=== PATIENT | female | born 1975 | race Caucasian/White ===

== ENCOUNTER 2022-11-19 11:17 | Emergency (ER) | payer BC, SELFPAY ==
--- NOTE | ~2022-11-19 | US_ITS ---
EXAMINATION: US abdomen limited DATE: 11/19/2022 16:03 INDICATION: pain TECHNIQUE: Multiple grayscale and Doppler ultrasound images of limited portions of the abdomen were o btained. COMPARISON: None available. FINDINGS: The visualized portions of the pancreas are normal. The liver is normal with increased echo genicity and echotexture. No surface nodularity. Normal hepatopetal flow in the main portal vein. Mul tiple nonmobile shadowing gallstones. No wall thickening or pericholecystic fluid. The common bile du ct measures 4 mm. There was no sonographic Pa sign. IMPRESSION: Echogenic liver, most commonly due to steatosis but also can be seen with hepatitis and fibrosis. Cho lelithiasis, without sonographic evidence of cholecystitis. Reviewed, dictated and finalized at location [facility] [employer] IMPRESSION: Echogenic liver, most commonly due to steatosis but also can be seen with hepat itis and fibrosis. Cholelithiasis, without sonographic evidence of cholecystiti s.
--- NOTE | 2022-11-19 11:19 | ECG_ITS ---
Measurements Intervals [place] Rate: 88 P: 29 [place]: 127 QRS: 23 QRSD: 106 T: 23 QT: 356 QTc: 432 Interpretive Statements SINUS RHYTHM NO PREVIOUS ECG AVAILABLE FOR COMPARISON Electronically Signed On 11-19-2022 13:25:25 [employer] by Nat Phelps M.D.
[2022-11-19 11:27] VITALS: BP 150/83; PULSE 86; RESP 18; TEMP 36.8; O2SAT 100
[2022-11-19 11:49] LABS: Alanine Aminotransferase 48 U/L (6-35); Albumin Level 4.8 g/dL (3.5-5.1); Alkaline Phosphatase 75 U/L (38-126); Anion Gap 9 mmol/L (8-16); Aspartate Amino Transferase 38 U/L (14-36); Bilirubin,Total 0.6 mg/dL (0.2-1.3); Blood Urea Nitrogen 7 mg/dL (7-17); Calcium 9.2 mg/dL (8.4-10.2); Carbon Dioxide 27 mmol/L (22-30); Chloride 104 mmol/L (98-107); Estimated CRCL calculation 106 ml/min; Estimated Glomerular Filt Rate > 60; Glucose 113 mg/dL (65-110); Potassium 4.1 mmol/L (3.4-5.0); Sodium 140 mmol/L (137-145)
[2022-11-19 11:54] LABS: Basophils Percent Auto 0.2 % (0.2-1.2); Eosinophils Percent Auto 0.3 % (0-4.4); Hematocrit 45.7 % (37.0-47.0); Immature Granulocyte Absolute 0.09 K/mm3 (0.00-0.031); Immature Granulocyte Percent A 0.7 % (0-0.5); Lymphocytes Absolute Auto 1.99 K/mm3 (0.9-3.2); Lymphocytes Percent Auto 16.2 % (18.3-44.2); Mean Corpuscular Hemoglobin 31.1 pg (26-34); Mean Corpuscular Volume 88.9 fl (80-100); Monocytes Absolute Auto 0.5 K/mm3 (0.1-0.6); Neutrophils Absolute Auto 9.7 K/mm3 (1.3-6.7); Neutrophils Percent Auto 78.6 % (45.5-73.1); Platelet Count Result 361 k/mm3 (150-375); Red Blood Count 5.14 M/mm3 (4.2-5.4); Red Cell Distribution Width 11.9 % (11.5-14.5); White Blood Count 12.3 K/mm3 (4.5-10.0)
[2022-11-19 13:44] LABS: Troponin I < 0.012 ng/mL (0.000-0.034)
--- NOTE | 2022-11-19 15:58 | ED.GENADULT ---
HPI - General Adult General Chief complaint: Dizziness Stated complaint: CP,N,V,DIZZINESS Time Seen by Provider: 11/19/22 15:29 Source: patient and RN notes reviewed Mode of arrival: ambulatory Limitations: no limitations History of Present Illness HPI narrative: THis is a 47 year old female who presents for evaluation of right upper abdominal pain. Patient states she woke up at 4 am this morning with epigastric abdominal pain that radiates around to her right side. This pain was constant for several hours. She reports her pain was 10/10 at onset and it is currently 2/10. She took ibuprofen at 7 am this morning. She reports nausea with eating. She states she had similar pain November 2021 and she was seen at ER. She was told that her pain was due to indigestion. She has been in communication with her PCP who does not believe it is indigestion but she refuses to order test on patient. Related Data Home Medications Medication Instructions Recorded Confirmed B Complex-Vitamin B12 11/19/22 Allergies Allergy/AdvReac Type Severity Reaction Status Date / Time atropine [From Lomotil] Allergy Rash Verified 11/19/22 11:29 diphenoxylate [From Lomotil] Allergy Rash Verified 11/19/22 11:29 Review of Systems Constitutional: Constitutional: Denies weakness Cardiovascular: Cardiovascular: Reports chest pain, Denies syncope, Denies rapid heart rate, Denies irregular heart rhythm, Denies leg edema and Denies dyspnea Respiratory: Respiratory: Denies chest congestion, Denies hemoptysis, Denies excessive phlegm production and Denies dyspnea Gastrointestinal: Gastrointestinal: Reports abdominal pain, Denies hematochezia, Denies diarrhea, Reports nausea and Denies vomiting Genitourinary: Genitourinary: Denies hematuria and Denies dysuria Musculoskeletal: Musculoskeletal: Denies joint swelling, Denies loss of height and Denies muscle weakness Neurologic: Denies syncope, Denies focal weakness and Denies weakness PMFSH Past Medical History Medical History (Updated 11/19/22 @ 17:23 by Luzmaria Liriano MD) Hypertension Social History Social History (Updated 11/19/22 @ 16:06 by Luzmaria Liriano MD) Smoking status: Never smoker Exam Const: General: no acute distress and alert Nutritional Appearance: well nourished Orientation/consciousness: patient oriented x3 Limitations: no limitations HENMT: Head: normal to inspection Eyes: EOM: EOMs intact bilaterally Chest: Chest palpation & inspection: normal inspection of the chest Resp: Effort & Inspection: normal respiratory effort Auscultation: clear to auscultation bilaterally Cardio: Rate: regular rate Rhythm: regular rhythm Heart sounds: no murmurs GI: GI Palp: Yes Soft to palpation, Yes Tenderness to palpation present (GI) (RUQ, epigastric), No Guarding due to palpation present (GI) and No Rigid due to palpation Auscultation: normal bowel sounds Back/Spine/Pelvis: Back: no CVA tenderness Skin: General skin exam: normal color Rashes: no rashes Wounds: no wounds Neuro: General: patient oriented x3, moves all extremities and CN's II-XI intact bilaterally Extrem: General: normal to inspection Psych: Mental Status: mental status grossly normal Affect: normal affect Attitude: cooperative Course Reevaluation(s) Reevaluation #1: PAtient reports her pain is going away. I discussed US shows gallstones and I discussed diet restriction. She does not have cholelithiasis on US. she has not UTI. Her pain is likely due to biliary colic. troponin is negative x 2. PERC negative. I discussed follow up and she denies any questions or concerns. Date: 11/19/22 Time: 17:17 Vital Signs Vital signs: Vital Signs Temperature 98.3 F 11/19/22 11:27 Pulse Rate 86 11/19/22 11:27 Respiratory Rate 18 11/19/22 11:27 Blood Pressure 150/83 H 11/19/22 11:27 Pulse Oximetry 100 11/19/22 11:27 Temperature 98.3 F 11/19/22 11:27 Pulse Rate 70 1
[2022-11-19] MEDS: SODIUM CHLORIDE 0.9% IV 1,000 ML 999 ML IV CONT (16:17)
[2022-11-19 16:34] LABS: Prothrombin Time 12.9 Seconds (11.1-14.7)
[2022-11-19 16:36] LABS: Partial Thromboplastin Time 28.9 SECONDS (22.3-36.8)
[2022-11-19 16:39] LABS: Lipase 86 U/L (23-300)
[2022-11-19 16:42] VITALS: BP 145/80; PULSE 76; PULSE 82; RESP 12; O2SAT 98
[2022-11-19 16:52] LABS: Add Urine Microscopic? YES; Appearance Urine Slightly Cloudy (Clear); Bilirubin Urine Negative (Negative); Blood Urine 1+ (Negative); Color Urine Yellow (Yellow); Glucose Urine UA Negative (Negative); Ketones Urine 2+ mg/dL (Negative); Leukocyte Esterase Ur Negative LEU/UL (Negative); Nitrate Urine Negative (Negative); Protein Urine Trace mg/dL (Negative); Specific Grav Ur >= 1.030 (1.001-1.035); Urobilinogen Urine 0.2 mg/dL (<2.0); pH Urine 5.5 (5.0-9.0)
[2022-11-19 16:57] LABS: Troponin I < 0.012 ng/mL (0.000-0.034)
[2022-11-19 17:15] LABS: Bacteria Urine Trace /hpf; Mucus Urine Rare /lpf; Squamous Epithelial Cell Urine Occasional /hpf (Few); WBC Urine 0-3 /hpf
[2022-11-19 17:55] VITALS: BP 130/80; PULSE 70; RESP 14; O2SAT 98
== END 2022-11-19 17:59 | disposition home or self-care (01) ==
PROVIDERS: Emergency Provider General Practice; PCP Physician Assistant
DX: K80.20 Calculus of gallbladder without cholecystitis without obstruction (principal); I10 Essential (primary) hypertension; R93.2 Abnormal findings on diagnostic imaging of liver and biliary tract
CPT/HCPCS: 36415; 76705; 80053; 81001; 81025; 83690; 84484; 85025; 85610; 85730; 93005; 96360; 99284; J7030